=== PATIENT | male | born 1960 | race Caucasian/White ===

== ENCOUNTER 2025-07-31 09:01 | Emergency (ER) | payer MEDICARE, OTHER ==
[2025-07-31] MEDS ORDERED: Sulfameth/Trimethoprim DS 800-160mg TAB ONE (09:34)
== END 2025-07-31 09:39 | disposition home or self-care (01) ==
LOC: BURERS 09:01
DX: L08.9 Local infection of the skin and subcutaneous tissue, unspecified (principal); I10 Essential (primary) hypertension; F17.220 Nicotine dependence, chewing tobacco, uncomplicated
CPT/HCPCS: 99282